=== PATIENT | male | born 1940 | race Caucasian/White ===

== ENCOUNTER 2021-04-11 09:05 | Outpatient (CLI) | payer MEDICARE, BC | END 2021-04-11 09:06 | disposition home or self-care (01) | LOC: CSHWCC 09:05 | PROVIDERS: ATTEND Nurse Practitioner Family | DX: S60.512D Abrasion of left hand, subsequent encounter (principal) | CPT/HCPCS: 97139; G0463; 99203 ==

== ENCOUNTER 2021-07-12 08:38 | Outpatient (CLI) | payer MEDICARE, BC | END 2021-07-12 08:39 | disposition home or self-care (01) | LOC: CSHMRI 08:38 | PROVIDERS: ATTEND Physician Assistant Medical | DX: K74.60 Unspecified cirrhosis of liver (principal); K76.9 Liver disease, unspecified; R18.8 Other ascites; R60.0 Localized edema; R16.0 Hepatomegaly, not elsewhere classified; R16.1 Splenomegaly, not elsewhere classified; K80.20 Calculus of gallbladder without cholecystitis without obstruction; K86.2 Cyst of pancreas | CPT/HCPCS: 74183; 82565 ==

== ENCOUNTER 2021-10-05 10:00 | Outpatient (CLI) | payer MEDICARE, BC | END 2021-10-05 10:01 | disposition home or self-care (01) | LOC: CSHMRI 10:00 | PROVIDERS: ATTEND Internal Medicine | DX: C22.0 Liver cell carcinoma (principal); R18.8 Other ascites; I25.10 Atherosclerotic heart disease of native coronary artery without angina pectoris; J98.4 Other disorders of lung | CPT/HCPCS: 71250; 74183 ==